=== PATIENT | female | born 1935 | race Caucasian/White ===

== ENCOUNTER 2017-03-15 06:27 | Day surgery (SDC) | payer OTHER, MEDICAID ==
[~2017-03-15] VITALS: Ht 154.9 cm; Wt 90.7 kg
[2017-03-15 07:16] VITALS: BP 144/74
[2017-03-15 09:07] VITALS: BP 146/75
== END 2017-03-15 09:45 | disposition home or self-care (01) ==
LOC: DS 06:27 → OR 07:30 → GI 07:30 → DS 09:45
PROVIDERS: Internal Medicine Gastroenterology
PROC: 0DB68ZZ Excision of Stomach, Via Natural or Artificial Opening Endoscopic (ICD-10-PCS; principal; 2017-03-15 07:30)
PROC: 0DJD8ZZ Inspection of Lower Intestinal Tract, Via Natural or Artificial Opening Endoscopic (ICD-10-PCS; 2017-03-15 07:30)
DX: K29.70 Gastritis, unspecified, without bleeding (principal); K44.9 Diaphragmatic hernia without obstruction or gangrene; K64.8 Other hemorrhoids; E66.9 Obesity, unspecified; Z68.39 Body mass index [BMI] 39.0-39.9, adult; Z95.0 Presence of cardiac pacemaker
CPT/HCPCS: 43235; 45378; J1200; J1610; J2250; J2310; J3010; J3490

== ENCOUNTER 2017-06-16 17:52 | Emergency (ER) | payer OTHER ==
[2017-06-16 17:58] VITALS: BP 147/99
== END 2017-06-16 18:32 | disposition home or self-care (01) ==
LOC: ED 17:52
DX: H61.23 Impacted cerumen, bilateral (principal); Z79.899 Other long term (current) drug therapy

== ENCOUNTER 2017-06-20 10:14 | Emergency (ER) | payer OTHER ==
[2017-06-20 11:55] VITALS: BP 145/95
== END 2017-06-20 12:16 | disposition home or self-care (01) ==
LOC: ED 10:14
DX: H60.502 Unspecified acute noninfective otitis externa, left ear (principal); I10 Essential (primary) hypertension; I48.91 Unspecified atrial fibrillation; Z95.5 Presence of coronary angioplasty implant and graft
CPT/HCPCS: 36415

== ENCOUNTER 2017-07-28 09:13 | Emergency (ER) | payer OTHER ==
[2017-07-28 10:31] LABS: BASOPHIL % 0.5 % (0-2); PLATELET COUNT 301 x10^3mcL (130-400); RED CELL DISTRIBUTION WIDTH 14.1 % (11.5-14.5)
[2017-07-28 10:53] LABS: CALCIUM 8.3 mg/dL (8.5-10.1); CARBON DIOXIDE 26.9 mmol/L (21-32); CHLORIDE SERUM 98 mmol/L (98-107); CREATININE SERUM 0.7 mg/dL (0.6-1.0); GLUCOSE SERUM 91 mg/dL (74-106); POTASSIUM SERUM 4.5 mmol/L (3.5-5.1); SODIUM SERUM 130 mmol/L (136-145)
[2017-07-28 10:58] LABS: ALBUMIN 3.5 g/dL (3.4-5.0); ALKALINE PHOSPHATASE 222 U/L (46-116); ALT/SGPT 92 U/L (14-59); AST/SGOT 95 U/L (15-37); BILIRUBIN TOTAL 0.6 mg/dL (0.20-1.00); TOTAL PROTEIN, SERUM 6.5 g/dL (6.4-8.2)
[2017-07-28] MEDS ORDERED: MASON NATURAL1000 IU PO (11:00)
[2017-07-28] MEDS ORDERED: NAPROXEN500 MG PO (11:04)
[2017-07-28] MEDS ORDERED: CARVEDILOL12.5 M1 PO (11:04)
[2017-07-28] MEDS ORDERED: ELIQUIS2.5 MG PO (11:05)
[2017-07-28] MEDS ORDERED: POTASSIUM CHLO10 MEQ PO (11:06)
[2017-07-28] MEDS ORDERED: ALPRAZOLAM2 MG PO (11:07)
[2017-07-28] MEDS ORDERED: FUROSEMIDE20 MG PO (11:08)
[2017-07-28] MEDS ORDERED: MAPAP EXTRA ST500 M1 PO (11:08)
[2017-07-28] MEDS ORDERED: LIPI20 PO (11:09)
[2017-07-28] MEDS ORDERED: TRAMADOL HCL50 MG PO (11:10)
[2017-07-28 12:38] LABS: microscopic required? YES; urine erythrocyte TRACE (NEGATIVE)
[2017-07-28 14:00] VITALS: BP 136/108
== END 2017-07-28 14:00 | disposition home or self-care (01) ==
LOC: ED 09:13
PROVIDERS: Emergency Medicine
DX: E86.0 Dehydration (principal); N39.0 Urinary tract infection, site not specified; I10 Essential (primary) hypertension; Z95.0 Presence of cardiac pacemaker
CPT/HCPCS: J7030

== ENCOUNTER 2017-10-18 22:46 | Observation (INO) | payer OTHER ==
[~2017-10-18] VITALS: Ht 139.7 cm; Wt 94.8 kg
[~2017-10-18 22:46] MED LIST: ALPRAZOLAM2 MG PO; CARVEDILOL12.5 M1 PO; ELIQUIS2.5 MG PO; FUROSEMIDE20 MG PO; LIPI20 PO; MAPAP EXTRA ST500 M1 PO; MASON NATURAL1000 IU PO; NAPROXEN500 MG PO; POTASSIUM CHLO10 MEQ PO; TRAMADOL HCL50 MG PO
[2017-10-19 00:35] LABS: BASOPHIL % 0.4 % (0-2); PLATELET COUNT 292 x10^3mcL (130-400)
[2017-10-19 00:49] LABS: CALCIUM 8.3 mg/dL (8.5-10.1); CARBON DIOXIDE 29.7 mmol/L (21-32); CHLORIDE SERUM 98 mmol/L (98-107); CREATININE SERUM 0.9 mg/dL (0.6-1.0); GLUCOSE SERUM 93 mg/dL (74-106); POTASSIUM SERUM 4.1 mmol/L (3.5-5.1); SODIUM SERUM 132 mmol/L (136-145)
[2017-10-19 00:55] LABS: ALBUMIN 3.7 g/dL (3.4-5.0); ALKALINE PHOSPHATASE 103 U/L (46-116); ALT/SGPT 23 U/L (14-59); AST/SGOT 23 U/L (15-37); BILIRUBIN TOTAL 0.5 mg/dL (0.20-1.00); TOTAL PROTEIN, SERUM 6.9 g/dL (6.4-8.2)
[2017-10-19 03:57] VITALS: BP 151/107
[2017-10-19 04:04] LABS: CHOLESTEROL/HDL RATIO 2.8; MAGNESIUM 2.6 mg/dL (1.8-2.4); PHOSPHOROUS 4.1 mg/dL (2.5-4.9)
[2017-10-19 04:12] LABS: T3 TOTAL 0.93 ng/mL
[2017-10-19 04:13] LABS: FREE T4 1.04 ng/dL (0.76-1.46); FREE THYROXINE INDEX 2.1 ug/dL (1.4-4.5); T4(THYROXINE) 6.5 ug/dL (4.7-13.3)
[2017-10-19 06:36] VITALS: BP 133/80
[2017-10-19 07:21] LABS: microscopic required? NO
[2017-10-19 07:43] LABS: urine erythrocyte NEGATIVE (NEGATIVE)
[2017-10-19 07:54] LABS: AMPHETAMINE QUAL UR NONE DETECTED (NEG <=1000)
[2017-10-19 08:30] VITALS: BP 111/72
[2017-10-19 09:46] VITALS: BP 133/80
[2017-10-19 13:15] VITALS: BP 118/60
[2017-10-19] MEDS ORDERED: ROBACL PO (13:54)
[2017-10-19] MEDS ORDERED: VENTOLIN H0.09 MG/A1 INH (15:25)
[2017-10-19 15:30] VITALS: BP 118/60
== END 2017-10-19 16:28 | disposition home or self-care (01) | DRG 205 ==
LOC: ED 22:46 → DU 10-19 02:18
PROVIDERS: Emergency Medicine; Family Medicine
DX: M94.0 Chondrocostal junction syndrome [Tietze] (principal); I50.43 Acute on chronic combined systolic (congestive) and diastolic (congestive) heart failure; E87.1 Hypo-osmolality and hyponatremia; Z68.42 Body mass index [BMI] 45.0-49.9, adult; I11.0 Hypertensive heart disease with heart failure; I16.0 Hypertensive urgency; J06.9 Acute upper respiratory infection, unspecified; I48.91 Unspecified atrial fibrillation; E83.41 Hypermagnesemia; E66.01 Morbid (severe) obesity due to excess calories; Z95.0 Presence of cardiac pacemaker; Z96.653 Presence of artificial knee joint, bilateral
CPT/HCPCS: 83880; 84439; 87804; 94150; G0378; J1940; J1956; J3490; J7030; J7620; Q0092

== ENCOUNTER 2017-10-30 09:51 | Inpatient (IN) | payer OTHER ==
[~2017-10-30] VITALS: Ht 144.8 cm; Wt 93.1 kg
[~2017-10-30 09:51] MED LIST changes: +ROBACL PO; -TRAMADOL HCL50 MG PO; +VENTOLIN H0.09 MG/A1 INH
[2017-10-30 11:28] LABS: CALCIUM 8.9 mg/dL (8.5-10.1); CARBON DIOXIDE 26.4 mmol/L (21-32); CHLORIDE SERUM 91 mmol/L (98-107); CREATININE SERUM 0.9 mg/dL (0.6-1.0); GLUCOSE SERUM 93 mg/dL (74-106); POTASSIUM SERUM 3.4 mmol/L (3.5-5.1); SODIUM SERUM 129 mmol/L (136-145)
[2017-10-30 11:33] LABS: ALBUMIN 3.7 g/dL (3.4-5.0); ALKALINE PHOSPHATASE 112 U/L (46-116); ALT/SGPT 18 U/L (14-59); AST/SGOT 17 U/L (15-37); BILIRUBIN TOTAL 0.8 mg/dL (0.20-1.00)
[2017-10-30 11:35] LABS: BASOPHIL % 0.5 % (0-2); PLATELET COUNT 434 x10^3mcL (130-400)
[2017-10-30] MEDS ORDERED: ELIQUIS2.5 MG (13:04)
[2017-10-30] MEDS ORDERED: ALDACTONE25 MG (13:04)
[2017-10-30] MEDS ORDERED: DILTIAZEM HCL120 M2 (13:04)
[2017-10-30 13:11] LABS: microscopic required? YES; urine erythrocyte NEGATIVE (NEGATIVE)
[2017-10-30 13:59] LABS: T3 TOTAL 0.98 ng/mL
[2017-10-30 14:03] LABS: PHOSPHOROUS 4.2 mg/dL (2.5-4.9)
[2017-10-30 14:05] LABS: CHOLESTEROL/HDL RATIO 2.9
[2017-10-30 14:12] LABS: FREE T4 1.37 ng/dL (0.76-1.46); FREE THYROXINE INDEX 3.9 ug/dL (1.4-4.5); T4(THYROXINE) 10.2 ug/dL (4.7-13.3)
[2017-10-30 14:31] VITALS: BP 145/93
[2017-10-30] MEDS ORDERED: CARDIZEM30 MG (14:35)
[2017-10-30] MEDS ORDERED: ALDACTONE25 MG PO (14:36)
[2017-10-30 18:48] VITALS: BP 130/88
[2017-10-30 18:56] LABS: AMPHETAMINE QUAL UR NONE DETECTED (NEG <=1000)
[2017-10-30 21:08] VITALS: BP 105/64
[2017-10-31 05:32] VITALS: BP 103/65
[2017-10-31 06:52] LABS: PLATELET COUNT 408 x10^3mcL (130-400); RED CELL DISTRIBUTION WIDTH 16.4 % (11.5-14.5)
[2017-10-31 06:53] LABS: BASOPHIL % 0.6 % (0-2)
[2017-10-31 07:24] LABS: CALCIUM 8.8 mg/dL (8.5-10.1); CARBON DIOXIDE 26.4 mmol/L (21-32); CHLORIDE SERUM 94 mmol/L (98-107); CREATININE SERUM 0.8 mg/dL (0.6-1.0); GLUCOSE SERUM 95 mg/dL (74-106); POTASSIUM SERUM 3.4 mmol/L (3.5-5.1); SODIUM SERUM 129 mmol/L (136-145)
[2017-10-31 09:35] VITALS: BP 116/73
[2017-10-31 10:30] VITALS: BP 125/86
[2017-10-31 13:25] VITALS: BP 118/63
[2017-10-31 17:30] VITALS: BP 124/70
[2017-10-31 21:58] VITALS: BP 95/52
[2017-11-01 06:03] VITALS: BP 92/57
[2017-11-01 07:12] LABS: CALCIUM 8.5 mg/dL (8.5-10.1); CARBON DIOXIDE 24.6 mmol/L (21-32); CHLORIDE SERUM 97 mmol/L (98-107); CREATININE SERUM 0.8 mg/dL (0.6-1.0); GLUCOSE SERUM 90 mg/dL (74-106); POTASSIUM SERUM 3.3 mmol/L (3.5-5.1); SODIUM SERUM 132 mmol/L (136-145)
[2017-11-01 07:37] LABS: PLATELET COUNT 353 x10^3mcL (130-400)
[2017-11-01 07:44] LABS: BASOPHIL % 3.7 % (0-2); RED CELL DISTRIBUTION WIDTH 15.5 % (11.5-14.5)
[2017-11-01 09:15] VITALS: BP 99/56
[2017-11-01] MEDS ORDERED: LEVAQUIN750 MG PO (13:50)
[2017-11-01] MEDS ORDERED: LAC PO (13:51)
[2017-11-01] MEDS ORDERED: METP PO (13:52)
[2017-11-01 14:57] VITALS: BP 97/63
[2017-11-01] MEDS ORDERED: ULT50 PO (15:15)
[2017-11-01] MEDS ORDERED: CARVEDILOL12.5 M1 PO (15:15)
[2017-11-01] MEDS ORDERED: TRAMADOL HCL50 MG PO (15:37)
== END 2017-11-01 16:18 | disposition home or self-care (01) | DRG 205 ==
LOC: ED 09:51 → DU 12:39
PROVIDERS: Emergency Medicine; Family Medicine
DX: M94.0 Chondrocostal junction syndrome [Tietze] (principal); I50.43 Acute on chronic combined systolic (congestive) and diastolic (congestive) heart failure; N39.0 Urinary tract infection, site not specified; Z68.41 Body mass index [BMI] 40.0-44.9, adult; M51.35 Other intervertebral disc degeneration, thoracolumbar region; G89.29 Other chronic pain; I48.2 Chronic atrial fibrillation; I10 Essential (primary) hypertension; E87.6 Hypokalemia; E78.5 Hyperlipidemia, unspecified; G47.00 Insomnia, unspecified; K59.00 Constipation, unspecified; Z95.0 Presence of cardiac pacemaker; Z96.653 Presence of artificial knee joint, bilateral; Z98.1 Arthrodesis status
CPT/HCPCS: 83880; 84439; 97110-GP; 97116-GP; 97530-GP; J0696; J1940; J3010; J7030; J7050; Q0092